=== PATIENT | female | born 1980 | race Caucasian/White ===

== ENCOUNTER 2022-09-07 07:05 | Emergency (ER) | payer BC ==
[2022-09-07] MEDS ORDERED: Diazepam 10 MG/2 ML SYRINGE ONE (07:39)
[2022-09-07] MEDS ORDERED: methylPREDNISolone Sod Succ/PF 125 MG/2 ML VIAL ONE (07:39)
[2022-09-07] MEDS ORDERED: Diazepam 5 MG TAB ONE (07:40)
== END 2022-09-07 07:48 | disposition home or self-care (01) ==
LOC: BURERS 07:05
DX: M54.41 Lumbago with sciatica, right side (principal)
CPT/HCPCS: 96372; 99283; J2930; J3360